=== PATIENT | female | born 1990 | race Hispanic/Latino ===

== ENCOUNTER 2017-09-25 11:08 | Emergency (ER) | payer OTHER ==
[2017-09-25 11:31] VITALS: BMI 35.4
--- NOTE | 2017-09-25 12:13 | C.PDOC ---
History Of Present Illness 27 yo female w/o significant PMhx come in for evaluation of cold sx for past 2 days associated with malaise, nasal congestion, sore throat, dry cough. Otherwise, pt denies high fever, chills, headache, dizziness, vertigo, drooling , dysphagia, dyspnea, CP, SOB, wheezing, abd. pain, V/D, back pain, UTI sx. Ambulate to Ed for evaluation, not in any apparent distress. Time Seen by Provider: 09/25/17 11:27 Chief Complaint (Nursing): ENT Problem History Per: Patient Onset/Duration Of Symptoms: Gradual Past Medical History Reviewed: Historical Data, Nursing Documentation, Vital Signs - Medical History PMH: No Chronic Diseases Surgical History: No Surg Hx Family History: States: No Known Family Hx - Social History Hx Alcohol Use: No Hx Substance Use: No - Immunization History Hx Tetanus Toxoid Vaccination: No Hx Influenza Vaccination: Yes Hx Pneumococcal Vaccination: No Review Of Systems Except As Marked, All Systems Reviewed And Found Negative. Constitutional: Positive for: Malaise. Negative for: Fever, Chills ENT: Positive for: Nose Discharge, Nose Congestion, Throat Pain. Negative for: Ear Discharge, Throat Swelling Cardiovascular: Negative for: Chest Pain Respiratory: Positive for: Cough. Negative for: Shortness of Breath, Wheezing Gastrointestinal: Negative for: Nausea, Vomiting, Abdominal Pain, Diarrhea Genitourinary: Negative for: Dysuria, Frequency Musculoskeletal: Negative for: Neck Pain Skin: Negative for: Rash Neurological: Negative for: Altered Mental Status, Headache, Dizziness Physical Exam - Physical Exam Appears: Well, Non-toxic, No Acute Distress Skin: Normal Color, Warm, Dry, No Rash Head: Normacephalic Eye(s): bilateral: PERRL Ear(s): Bilateral: Normal Nose: No Flaring, Discharge (scant clear rhinorrhea B/L with congestion) Oral Mucosa: Moist, No Drooling Throat: No Erythema, No Drooling Neck: Trachea Midline, Supple, Other ((-) meningeal sign) Cardiovascular: Rhythm Regular Respiratory: No Decreased Breath Sounds, No Accessory Muscle Use, No Stridor, No Wheezing Gastrointestinal/Abdominal: Soft, No Tenderness, No Distention, No Guarding Extremity: Normal ROM, No Deformity, No Swelling Neurological/Psych: Oriented x3, Normal Speech ED Course And Treatment O2 Sat by Pulse Oximetry: 98 Pulse Ox Interpretation: Normal Progress Note: On re-evaluation, pt is afebrile, hemodynamicaly stable. Non- toxic. Tolerate PO well in ED. PulseOx 98% RA. neck: Supple, (-) meningeal sign. ENT: no acute findings. Lungs: CTA B/L, BS equal B/L. Abd: bneign. neurologicaly intact. Pt has clinical findings c/w viral illness. Pt advised. ref. to f/u with PMD in 2-3 days for re-eval. return to ED if any worsening or new changes. Disposition - Disposition Referrals: [facility] [Outside] Disposition: HOME/ ROUTINE Disposition Time: 12:05 Condition: STABLE Additional Instructions: Encourage fluids Take medication as prescribed Follow up with PMD in 2-3 days for re-evaluation. return to ED if any worsening or new changes. Prescriptions: Benzonatate [Tessalon Perle] 100 mg PO TID #14 capsule Oseltamivir Phosphate [Tamiflu] 75 mg PO BID #10 capsule Prednisone [Deltasone] 40 mg PO DAILY #6 tablet Instructions: Viral Upper Respiratory Infection, Adult (DC) Forms: [employer] (Japanese), Work Excuse - Clinical Impression Clinical Impression: Viral illness
[2017-09-25 12:17] VITALS: BP 124/85; PULSE 82; RESP 16; TEMP 97.8; O2SAT 98
== END 2017-09-25 12:25 | disposition home or self-care (01) ==
LOC: C.ER 11:08
DX: B34.9 Viral infection, unspecified (principal)